=== PATIENT | female | born 1990 | race Caucasian/White ===

== ENCOUNTER 2019-02-06 17:10 | Emergency (ER) | payer BC ==
--- NOTE | 2019-02-06 17:50 | EDM.PDOC ---
ED HPI GENERAL MEDICAL PROBLEM - General Chief Complaint: Neurological Problem Stated Complaint: STROKE SYMPTOMS Time Seen by Provider: 02/06/19 17:39 Source of Information: Reports: Patient History Limitations: Reports: No Limitations - History of Present Illness INITIAL COMMENTS - FREE TEXT/NARRATIVE: 28-year-old female presents to the ED with right sided facial weakness and numbness and tingling as well as some appreciable numbness and tingling in her right arm and right leg. He is appreciated that she's not able to close her right eye all the way. She also feels that there may be some diplopia on looking upwards and to the lateral gaze. Her walking is fine her balance is okay. She is currently 24 weeks gestation with a relatively uncomplicated . She is 1 para 0. She takes no medications other than vitamins. She has no associated headache. She has no humming buzzing or ringing in her ears. No visual acuity changes. Onset: Today Onset Date: 02/06/19 Onset Time: 08:00 (Appreciated some right facial) Duration: Hour(s): Location: Reports: Face (Right sania-face), Upper Extremity, Right, Lower Extremity, Right (Feels paresthesias in both the right upper and lower extremities which are mild.) Quality: Reports: Other (Appreciated some weakness in her right sania-face) Severity: Moderate Improves with: Reports: None (Right hemifacial weakness and numbness and tingling) Worsens with: Reports: Other Context: Denies: Activity, Exercise (It has been gradually worsening as the day has gone on.), Lifting, Sick Contact, Trauma Associated Symptoms: Reports: Weakness. 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.) - Related Data Allergies Allergy/AdvReac Type Severity Reaction Status Date / Time No Known Allergies Allergy Verified 02/06/19 17:14 Home Meds: Home Meds Cmb#95/Iron/FA/DHA [ + Dha Combo Pack] 1 tab PO DAILY 02/06/19 [History] valACYclovir [Valtrex] 1,000 mg PO TID #21 tab 04/11/19 [Rx] Past Medical History - Past Health History Medical/Surgical History: Denies Medical/Surgical History : 1 Para: 0 LMP (Approximate): (Clinically 24 weeks gestation) Social & Family History - Tobacco Use Smoking Status *Q: Never Smoker - Caffeine Use Caffeine Use: Reports: Coffee - Recreational Drug Use Recreational Drug Use: No - Living Situation & Occupation Living situation: Reports: 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 Denies: Fever, Chills, Decreased Appetite, Weight Loss HEENT: Denies: Dental Pain, Ear Discharge, Ear Pain, Eye Discharge, Eye Pain, Glasses, Hearing Loss, Nosebleed, Nose Pain, Rhinitis, Sinus Problem, Throat Pain, Vertigo Respiratory: Reports: No Symptoms Cardiovascular: Reports: No Symptoms Endocrine: Reports: Fatigue GI/Abdominal: Reports: No Symptoms (Which indicate he claims to .) : Reports: No Symptoms Musculoskeletal: Reports: No Symptoms Skin: Reports: No Symptoms Neurological: Reports: Numbness, Paresthesia (Right sania-face also appreciates some numbness and tingling in her right hand arm and leg.), Tingling (In her right sania-face). Denies: Confusion, Dizziness, Headache Psychiatric: Reports: No Symptoms Hematologic/Lymphatic: Reports: No Symptoms Immunologic: Reports: No Symptoms ED EXAM, NEURO - Physical Exam Exam: See Below Exam Limited By: No Limitations General Appearance: Alert, WD/WN, Anxious (Mildly anxious.) Eye Exam: Bilateral Eye: Normal Inspection, PERRL Ears: Normal TMs Nose: Normal Inspection Throat/Mouth: Normal Inspection, Normal Lips, Normal Teeth, Normal Oropharynx, Other Head Exam: Atraumatic (Uvula is in the midline.), Normocephalic Neck: Normal Inspection, Supple, Non-Tender, Full Range of Motion. No: Lymphadenopathy (L), Lymphadenopathy (R) Respiratory/Chest: No Respiratory Distress, Lungs Clear, Normal Breath Sounds, No Accessory Muscle Use Cardiovascular: Normal Peripheral Pulses, Regular Rate, Rhythm, No Edema, No Gallop, No Murmur, No Rub GI/Abdominal: Normal Bowel Sounds, Soft, Non-Tender, No Organomegaly, Other ( Gravid uterus felt 4 cm above the umbilicus.) Neurological: Alert, Normal Mood/Affect, Normal Dorsiflexion, CN II-XII Intact, Normal Plantar Flexion, Normal Gait, Normal Reflexes, Oriented x 3, Abnormal Sensation (She has decreased sensation right sania-face in the distribution of the seventh cranial nerve), Other ( is unable to close her right eye completely and I can easily open it. She also has slight right facial droop on smiling and on puffing up cheeks with air the forehead is spared. 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 Appreciate no motor weakness in either upper or lower extremity on aggressive neurological exam. She can walk heel to brannon without any issues.). No: Extensor Response to Pain, Flexor Response to Pain, Withdraws to Pain, Abnormal Finger to Nose, Abnormal Light Touch, Abnormal Motor , Abnormal Pin Prick, Abn 2 Pt Discrimination, Babinski, Straight Leg Raise (R) , Saddle Anesthesia, Difficulty Walking DTR: 2+: Tricep (R), Tricep (L), Achilles (R), Achilles (L), 3+: Bicep (R), Bicep (L), Patella (R), Patella (L) Back Exam: Normal Inspection, Full Range of Motion. No: CVA Tenderness (L), CVA Tenderness (R) Extremities: Normal Inspection, Normal Range of Motion, Non-Tender, No Pedal Edema Psychiatric: Normal Affect, Normal Mood, Anxious Skin Exam: Warm (Mildly anxious), Dry, Intact, Normal Color, No Rash EKG INTERPRETATION EKG Date: 02/06/19 Time: 19:15 Rhythm: NSR Rate (Beats/Min): 75 Norris: Normal P-Wave: Present (Borderline short [place] interval) QRS: Normal ST-T: Normal QT: Normal EKG Interpretation Comments: Essentially normal ECG Course - Vital Signs Last Recorded V/S: Last Vital Signs Temp 36.6 C 02/06/19 17:11 Pulse 80 02/06/19 17:11 Resp 16 02/06/19 17:11 BP 126/66 02/06/19 17:11 Pulse Ox 99 02/06/19 17:11 - Orders/Labs/Meds Labs: Laboratory Tests 02/06/19 02/06/19 02/06/19 Range/Units 17:16 17:55 17:55 WBC 8.98 (3.98-10.04) K/mm3 RBC 3.19 L (3.98-5.22) M/mm3 Hgb 10.7 L (11.2-15.7) gm/L Hct 31.3 L (34.1-44.9) % MCV 98.1 H (79.4-94.8) fl MCH 33.5 H (25.6-32.2) pg MCHC 34.2 (32.2-35.5) g/dl RDW Std Deviation 47.0 H (36.4-46.3) fL Plt Count 215 (182-369) K/mm3 MPV 9.4 (9.4-12.3) fl Neutrophils % (Manual) 68 H (40-60) % Band Neutrophils % 2 (0-10) % Lymphocytes % (Manual) 20 (20-40) % Atypical Lymphs % 0 % Monocytes % (Manual) 10 (2-10) % Eosinophils % (Manual) 0 L (0.7-5.8) % Basophils % (Manual) 0 L (0.1-1.2) Platelet Estimate Adequate RBC Morph Comment Normal Sodium 137 (136-145) mEq/L Potassium 3.5 (3.5-5.1) mEq/L Chloride 103 (98-107) mEq/L Carbon Dioxide 23 (21-32) mEq/L Anion Gap 14.5 (5-15) BUN 8 (7-18) mg/dL Creatinine 0.5 L (0.55-1.02) mg/dL Est Cr Clr Drug Dosing 181.14 mL/min Estimated GFR (MDRD) > 60 (>60) mL/min BUN/Creatinine Ratio 16.0 (14-18) Glucose 85 (74-106) mg/dL POC Glucose 94 (70-105) mg/dL Calcium 8.0 L (8.5-10.1) mg/dL Magnesium 1.9 (1.8-2.4) mg/dl Total Bilirubin 0.2 (0.2-1.0) mg/dL AST 15 (15-37) U/L ALT 26 (14-59) U/L Alkaline Phosphatase 46 (46-116) U/L Total Protein 6.5 (6.4-8.2) g/dl Albumin 3.0 L (3.4-5.0) g/dl Globulin 3.5 gm/dL Albumin/Globulin Ratio 0.9 L (1-2) - Radiology Interpretation Free Text/Narrative:: 28-year-old female attends the ED with complaints of right hemifacial weakness and noted inability to close her right eye completely and that there might be some mild right facial drooping. She was aware that her right sania-face didn't feel quite right this morning when she awakened. As the day has progressed she' s appreciating increased weakness and numbness and tingling in her right sania- face. She also appreciates numbness and tingling in her right upper extremity as well as her right lower extremity. However she can walk normally there's been no balance issues and her vision is okay. She denies any headache. Patient is 24 weeks . 1 para 0 without any complications of the . Complete neurological examination identifies that there is some weakness of the periocular muscle on the right side as well as the orbicularis emmie muscle on the right side of her face with slight drooping. This is most noticed when she tries to puff up her cheeks with air. The forehead appears to be spared. She does have decreased sensation to the right sania-face compatible with Clancy's palsy. I could not identify any significant weakness in her right upper extremity or left upper extremity. She feels that there is some paresthesias in the arms and legs but this will be highly unusual with the clinical presentation with right hemifacial weakness. Plan routine labs to be done. - Re-Assessments/Exams Free Text/Narrative Re-Assessment/Exam: 02/06/19 19:20 Labs are back and reveal a normal white count at 8.98. The differential shows 60% neutrophils 2% bands. Hemoglobin is 10.7 with hematocrit of 31.3. MCV is 98.1. Sodium was 137 with potassium slightly low at 3.5. Chloride 103 with bicarbonate 23. And a gap is 14.5. BUN is 8 with a creatinine of 0.5 GFR remains greater than 60. Glucose is 85. Bedside glucose was 94. Calcium is 8.0. Magnesium normal at 1.9. Liver function normal. Total protein slightly low at 6.5 with an albumin fraction 3.0. Patient reassured in this regard. She indicates that the right arm and leg numbness and tingling is now gone. However retesting her face shows that she cannot close her right eye completely. Slight drooping of the right side of her face as well compatible with Clancy's palsy. It is safe to use De during and and therefore she will be started on 1 g 3 times a day for the next 7 days. She will taper her right eye closed with Lacri-Lube or erythromycin ointment every night at bedtime to prevent any corneal drying or injury. She was advised to expect things to look much worse tomorrow or the next day and usually condition worsens over a period of a week. It seems to stay the same for another 2 weeks and then slowly start to improve usually by week 6-8. 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 Symptoms started this morning. Initially you had some associated numbness and tingling in your upper extremity and right lower extremity. However complete neuro exam showed no weakness or abnormalities in the upper or lower extremity. 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 It is noted to be slightly more common during . The most important part of the treatment plan is to prevent the right eye from staying open while sleeping. This means that a moisturizing ointment needs to be placed in the lower eyelid and then the eye taped closed with 5 patches overnight until nerve function returns with ability to completely close her eye. This will likely be the better part of 6-8 weeks. Treatment also is antiviral medication Clancy's sick clear 1 g 3 times daily for the next week in an effort to prevent more severe form of this disorder and to hopefully help it heal much quicker than normal. Follow-up with Dr. Alvarez in 10 days' time as planned.
== END 2019-02-06 19:45 | disposition home or self-care (01) ==
LOC: JD.ED 17:10
DX: O99.352 Diseases of the nervous system complicating pregnancy, second trimester (principal); G51.0 Bell's palsy; Z3A.24 24 weeks gestation of pregnancy; Z79.899 Other long term (current) drug therapy
CPT/HCPCS: 36415; 80053; 82962; 83735; 85007; 85027; 99283; 99284